=== PATIENT | female | born 1990 | race Caucasian/White ===

== ENCOUNTER 2016-06-01 19:38 | Inpatient (IN) | payer BC ==
--- NOTE | 2016-06-01 20:05 | EDPHY ---
H & P Source: Patient, EMS Exam Limitations: Clinical condition - Medical/Surgical History Hx Asthma: No Hx Chronic Respiratory Disease: No Hx Diabetes: No Hx Cardiac Disease: No Hx Renal Disease: No Hx Cirrhosis: No Other PMH: ADD, depression - Family History Significant Family History: No pertinent family hx - Social History Smoking Status: Former smoker Alcohol Use: Occasionally Drug Use: Marijuana Time Seen by Provider: 06/01/16 19:54 HPI/ROS: CHIEF COMPLAINT: Wrist laceration HISTORY OF PRESENT ILLNESS: Patient is a 25-year-old female who is brought in by police for a wrist laceration. Her ex-boyfriend told them that she was suicidal. She denies this. She called him a "fucking douche bag who was trying to get her kicked out of her apartment." She denies suicidality. She did have 1 shot this evening and smoked marijuana. She has a history of depression and was supposed to be on Concerta but states her boyfriend threw it away sometime ago. REVIEW OF SYSTEMS: Constitutional: denies: chills, fever, recent illness, recent injury EENTM: denies: blurred vision, double vision, nose congestion Respiratory: denies: cough, shortness of breath Cardiac: denies: chest pain, irregular heart rate, lightheadedness, palpitations Gastrointestinal/Abdominal: denies: abdominal pain, diarrhea, nausea, vomiting, blood streaked stools Genitourinary: denies: dysuria, frequency, hematuria, pain Musculoskeletal: denies: joint pain, muscle pain Skin: See HPI Neurological: denies: headache, numbness, paresthesia, tingling, dizziness, weakness Hematologic/Lymphatic: denies: blood clots, easy bleeding, easy bruising Immunologic/allergic: denies: HIV/AIDS, transplant EXAM: GENERAL: Tearful, anxious HEAD: Atraumatic, normocephalic. EYES: Pupils equal round and reactive to light, extraocular movements intact, sclera anicteric, conjunctiva are normal. ENT: TMs normal, nares patent, oropharynx clear without exudates. Moist mucous membranes. NECK: Normal range of motion, supple without lymphadenopathy or JVD. LUNGS: Breath sounds clear to auscultation bilaterally and equal. No wheezes rales or rhonchi. HEART: Regular rate and rhythm without murmurs, rubs or gallops. ABDOMEN: Soft, nontender, normoactive bowel sounds. No guarding, no rebound. No masses appreciated. BACK: No CVA tenderness, no spinal tenderness, step-offs or deformities EXTREMITIES: Laceration, Normal range of motion, no pitting or edema. No clubbing or cyanosis. NEUROLOGICAL: Cranial nerves II through XII grossly intact. Normal speech, normal gait. 5/5 strength, normal movement in all extremities, normal sensation PSYCH: Tearful, angry, minimally cooperative SKIN: For cm laceration/abrasion to left mid forearm on the palmar aspect. Not gaping, 2 mm deep at the deepest. (Wyatt Loredo) Constitutional: Initial Vital Signs Temperature (C) 36.6 C 06/01/16 20:01 Heart Rate 76 06/01/16 20:01 Respiratory Rate 16 06/01/16 20:01 Blood Pressure 126/92 H 06/01/16 20:01 O2 Sat (%) 91 L 06/01/16 20:01 O2 Delivery Mode Room Air Allergies/Adverse Reactions: No Known Allergies Allergy (Unverified 02/21/11 12:37) Home Medications: Medication Instructions Recorded Oxytricyline (Bcp) 02/21/11 Concerta 06/01/16 traZODone 06/01/16 Medical Decision Making ED Course/Re-evaluation: 3:00 a.m.- The patient was seen by the mental health worker [place] and been accepted at [address] [place] [address]. We plan to transfer the patient. (Verna Kramer) We repaired the patient's laceration with Steri-Strips which she promptly removed and refused further treatment. 10:30 p.m. the patient is medically cleared. We are awaiting psychiatric evaluation. 10:45 p.m. patient care transferred to Dr. Kramer. (Wyatt Loredo) Differential Diagnosis: Partial list of the Differential diagnosis considered include but were not limited to; depression, laceration, personality disorder, intoxication and although unlikely based on the history and physical exam, I also considered head injury, infection, assault, schizophrenia, suicidality. (Wyatt Loredo) - Data Points Laboratory Results: Laboratory Results 06/01/16 20:50 06/01/16 20:50 06/01/16 06/01/16 06/01/16 21:15 20:50 20:50 WBC RBC Hgb Hct MCV MCH MCHC RDW Plt Count MPV Neut % (Auto) Lymph % (Auto) Slope % (Auto) Eos % (Auto) Baso % (Auto) Nucleat RBC Rel Count Absolute Neuts (auto) Absolute Lymphs (auto) Absolute Monos (auto) Absolute Eos (auto) Absolute Basos (auto) Absolute Nucleated RBC Immature Gran % Immature Gran # Sodium Potassium Chloride Carbon Dioxide Anion Gap BUN Creatinine Estimated GFR Glucose Calcium Total Bilirubin 0.5 mg/dL mg/dL (0.1-1.4) Conjugated Bilirubin 0.4 mg/dL mg/dL (0.0-0.5) Unconjugated Bilirubin 0.1 mg/dL mg/dL (0.0-1.1) AST 33 IU/L IU/L (14-46) ALT 38 IU/L IU/L (9-52) Alkaline Phosphatase 63 IU/L IU/L (38-126) Total Protein 8.5 g/dL H g/dL (6.3-8.2) Albumin 5.0 g/dL g/dL (3.5-5.0) Urine Opiates Screen NEGATIVE (NEGATIVE) Urine Barbiturates NEGATIVE (NEGATIVE) Ur Phencyclidine Scrn NEGATIVE (NEGATIVE) Ur Amphetamine Screen NEGATIVE (NEGATIVE) U Benzodiazepines Scrn NEGATIVE (NEGATIVE) Urine Cocaine Screen NEGATIVE (NEGATIVE) U Marijuana (THC) Screen NEGATIVE (NEGATIVE) Ethyl Alcohol 113 mg/dL H mg/dL (0-10) 06/01/16 06/01/16 20:50 20:50 WBC 7.24 10^3/uL 10^3/uL (3.80-9.50) RBC 4.49 10^6/uL 10^6/uL (4.18-5.33) Hgb 14.0 g/dL g/dL (12.6-16.3) Hct 42.0 % % (38.0-47.0) MCV 93.5 fL fL (81.5-99.8) MCH 31.2 pg pg (27.9-34.1) MCHC 33.3 g/dL g/dL (32.4-36.7) RDW 13.0 % % (11.5-15.2) Plt Count 364 10^3/uL 10^3/uL (150-400) MPV 9.0 fL fL (8.7-11.7) Neut % (Auto) 67.2 % % (39.3-74.2) Lymph % (Auto) 28.0 % % (15.0-45.0) Slope % (Auto) 3.6 % L % (4.5-13.0) Eos % (Auto) 0.8 % % (0.6-7.6) Baso % (Auto) 0.3 % % (0.3-1.7) Nucleat RBC Rel Count 0.0 % % (0.0-0.2) Absolute Neuts (auto) 4.86 10^3/uL 10^3/uL (1.70-6.50) Absolute Lymphs (auto) 2.03 10^3/uL 10^3/uL (1.00-3.00) Absolute Monos (auto) 0.26 10^3/uL L 10^3/uL (0.30-0.80) Absolute Eos (auto) 0.06 10^3/uL 10^3/uL (0.03-0.40) Absolute Basos (auto) 0.02 10^3/uL 10^3/uL (0.02-0.10) Absolute Nucleated RBC 0.00 10^3/uL 10^3/uL (0-0.01) Immature Gran % 0.1 % % (0.0-1.1) Immature Gran # 0.01 10^3/uL 10^3/uL (0.00-0.10) Sodium 145 mEq/L H mEq/L (134-144) Potassium 4.4 mEq/L mEq/L (3.5-5.2) Chloride 108 mEq/L mEq/L (97-110) Carbon Dioxide 21 mEq/l L mEq/l (22-31) Anion Gap 16 mEq/L mEq/L (8-16) BUN 10 mg/dL mg/dL (7-23) Creatinine 0.8 mg/dL mg/dL (0.6-1.0) Estimated GFR > 60 Glucose 88 mg/dL mg/dL (70-100) Calcium 10.0 mg/dL mg/dL (8.5-10.4) Total Bilirubin Conjugated Bilirubin Unconjugated Bilirubin AST ALT Alkaline Phosphatase Total Protein Albumin Urine Opiates Screen Urine Barbiturates Ur Phencyclidine Scrn Ur Amphetamine Screen U Benzodiazepines Scrn Urine Cocaine Screen U Marijuana (THC) Screen Ethyl Alcohol Medications Given: Discontinued Medications Nicotine (Nicoderm Cq) 14 mg TD EDNOW ONE Stop: 06/02/16 03:48 Last Admin: 06/02/16 04:00 Dose: 14 mg Thiamine HCl (Vitamin B-1) 100 mg IM ONCE ONE Stop: 06/02/16 05:42 Last Admin: 06/02/16 05:59 Dose: Not Given Thiamine HCl (Vitamin B-1) 100 mg PO ONCE ONE Stop: 06/02/16 05:42 Last Admin: 06/02/16 05:59 Dose: Not Given Departure - Departure Disposition: [facility] IP Clinical Impression: Suicidal ideation Condition: Fair
[2016-06-01 21:26] LABS: % IMMATURE GRANULYOCYTES 0.1 % (0.0-1.1); ABSOLUTE IMMATURE GRANULOCYTES 0.01 10^3/uL (0.00-0.10); ADD DIFF? NO; ADD MORPH? NO; ADD SCAN? NO; ATYPICAL LYMPHOCYTE FLAG 30 (0-99); FRAGMENT RBC FLAG 0 (0-99); LEFT SHIFT FLG 0 (0-99); LIPEMIA HEMOLYSIS FLAG 80 (0-99); MEAN CELL HEMOGLOBIN 31.2 pg (27.9-34.1); MEAN CELL HEMOGLOBIN CONCENTR. 33.3 g/dL (32.4-36.7); MEAN CELL VOLUME 93.5 fL (81.5-99.8); PLATELET CLUMPS FLAG 0 (0-99); PLATELET COUNT 364 10^3/uL (150-400); RED BLOOD CELL COUNT 4.49 10^6/uL (4.18-5.33)
[2016-06-01 21:34] LABS: ANION GAP 16 mEq/L (8-16); CARBON DIOXIDE 21 mEq/l (22-31); CHLORIDE 108 mEq/L (97-110); CREATININE 0.8 mg/dL (0.6-1.0); GLOMERULAR FILTRATION RATE > 60; GLUCOSE 88 mg/dL (70-100); POTASSIUM 4.4 mEq/L (3.5-5.2); SODIUM 145 mEq/L (134-144)
[2016-06-01 22:31] LABS: ETHANOL SERUM 113 mg/dL (0-10)
[2016-06-02 03:28] LABS: BILIRUBIN,TOTAL 0.5 mg/dL (0.1-1.4); BILIRUBIN-CONJUGATED 0.4 mg/dL (0.0-0.5); BILIRUBIN-UNCONJUGATED 0.1 mg/dL (0.0-1.1); TOTAL PROTEIN 8.5 g/dL (6.3-8.2)
[2016-06-02] MEDS ORDERED: NICOTINE 14 MG/24 HR PATCH TD ONE (03:47)
[2016-06-02] MEDS ORDERED: MAG HYDROX/AL HYDROX/SIMETH 30 ML UDCUP PO PRN (04:25)
[2016-06-02] MEDS ORDERED: MAGNESIUM HYDROXIDE 30 ML UDCUP PO PRN (04:25)
[2016-06-02] MEDS ORDERED: ACETAMINOPHEN 325 MG TAB PO PRN (04:25)
[2016-06-02] MEDS: LORazepam 0.5 MG TAB PO PRN ×2 (04:47→16:02)
[2016-06-02] MEDS: NICOTINE POLACRILEX 2 MG GUM B PRN ×3 (04:47→15:45)
[2016-06-02] MEDS ORDERED: chlordiazePOXIDE 25 MG CAP PO PRN (05:41)
[2016-06-02] MEDS ORDERED: IBUPROFEN 200 MG TAB PO PRN (05:41)
[2016-06-02] MEDS ORDERED: PROMETHAZINE HCL 25 MG SUPPR PR PRN (05:41)
[2016-06-02] MEDS ORDERED: THIAMINE HCL 100 MG TAB (ONCE) PO ONE (05:41)
[2016-06-02] MEDS ORDERED: PROMETHAZINE HCL 25 MG TAB PO PRN (05:41)
[2016-06-02] MEDS ORDERED: THIAMINE HCL 200 MG/2 ML VIAL IM (ONCE) IM ONE (05:41)
[2016-06-02] MEDS: THIAMINE HCL 100 MG TAB (DAILY X 3) PO SCH (10:01)
[2016-06-02] MEDS: MULTIVITAMINS 1 EACH TAB PO SCH (10:01)
[2016-06-02] MEDS: FOLIC ACID 1 MG TAB PO SCH (10:01)
[2016-06-02] MEDS ORDERED: BACITRACIN OINTMENT 1 PACKET TP ONE (10:11)
[2016-06-02] MEDS: ESCITALOPRAM OXALATE 10 MG TAB PO SCH (15:45)
[2016-06-02] MEDS ORDERED: QUEtiapine FUMARATE 50 MG TAB PO PRN (16:40)
--- NOTE | 2016-06-02 17:18 | BAPA ---
DATE OF SERVICE: 06/02/2016 CHIEF COMPLAINT: "I felt pushed up against the wall with only 1 way out." HISTORY OF PRESENT ILLNESS: Patient is a 25-year-old female with a history of attention d eficit hyperactivity disorder since childhood. She states that she also suffered from depression of f and on and has had repeated and chronic suicidal ideations with multiple previous suicide attempts . She also describes history off and on over time of self-injurious behavior, specifically cutting. She has been living with a boyfriend of 1 month, and states that they had been having fights. Rossana guerrero asked what they fight about, the patient states "when I get drunk, I get mean, and he is a little bitch." She states that she had been drinking the night prior to admission, and that she was making comments about his home being filthy, and he had made a birthday cake for his mother, and she was c riticizing that as well. He told her that he did not want her in his home anymore, and she needed t o move out, and she said that "my life was over. I knew I was going to homeless." She then sta saulo "I knew what I had to do, and I did it." By this, she meant that she went to the bedroom and at tempted to hang herself with a scarf. When unsuccessful, she then filled the bathtub with water, go t in it with her clothes on, and cut her wrist. When her boyfriend found her, she still had the sca rf or handkerchief on her neck and was bleeding profusely. Her boyfriend called the police, and rossana guerrero they arrived, she took off running in the street soaking wet in the cold night. Police were able to apprehend her, and take her to the emergency department, where she was placed on an M1 hold and a dmitted for further evaluation. Today, she states that she was serious about harming herself or kil ling herself. She states "I could not be homeless." She states that she has burned all of her brid ges with family and friends, and "no one will let me home until I am better." She states she wants to be treated for her depression, and describes herself as an "alcoholic with rage issues." She com plains of chronically depressed mood, poor energy, motivation, poor attention and concentration, poo r short-term memory, disruptive sleep, and feelings of helplessness and hopelessness, as well as chr onic suicidal thoughts. She reports drinking up to 12 shots of "straight liquor" per night. PAST PSYCHIATRIC HISTORY: No previous psychiatric hospitalizations. She has seen Dr. Jesus Carrera on in the past, though not recently. She was supposed to have had a phone appointment with him rece ntly, but did not do that. She has had 4-5 previous suicide attempts usually by cutting. She has a history of self-mutilation as well. She has previously taken Strattera, Ritalin, Adderall in addit ion to her current medications and was diagnosed with attention deficit hyperactivity disorder at th e age of 8. ALLERGIES: No known medical allergies. CURRENT MEDICATIONS: Trazodone dose unknown, Loestrol 28 control pills, and Concerta 54 mg da kim. PAST MEDICAL HISTORY: Noncontributory per patient's report. SOCIAL HISTORY: Patient was born in [place], though grew up in [place]. Her parents and sister live in the family home in [place]. She states she does not have a good relationship with them d ue to multiple longstanding conflicts. The patient is currently unemployed and homeless. 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 She states that she did not like it anyway because "I hate my patients. 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 She worked 2 part-time jobs recently, but got fired from 1, and was only getting 23 gonzalez rs between the 2. She has no savings or other resources at this time. She denies any legal problem s. SOCIAL HISTORY: Patient drinks nightly, up to 12 shots of hard alcohol. She denies any other drug use, including marijuana. FAMILY HISTORY: Patient's maternal grandmother had Alzheimer dementia, and multiple female members of the family of alcoholism. She states "everyone woman in my family has by 48 from drink ing and burning themselves up on a mattress." ADMISSION LABORATORY: CBC is normal. Serum chemistry shows sodium up at 145, otherwise normal. Li luis function is normal. Total protein slightly up at 8.5. Urine drug screen is negative for all daniel bstances. Alcohol was 113. MENTAL STATUS EXAMINATION: Reveals a rather disheveled female, dressed in hospital scrub pants and a long sleeve T-shirt. She interacts reasonably well, maintaining eye contact, though a c onstricted, somewhat angry affect. She is also tearful at times. Her mood is described as "depress ed." Her thought process is linear and goal directed. Her thought content reveals no evidence of p sychosis. She is alert and oriented to person, place, time, and situation. Her sensorium is clear. She continues to endorse thoughts of suicide with no specific plan. She states she feels safe in the hospital. Her intellect appears to be average as evidenced by her educational and occupational histories, fund of knowledge, and vocabulary. Her insight and judgment appear to be marginal. IMPRESSION: Depressive disorder, not otherwise specified. Attention deficit hyperactivity disorder , combined type, by history. Alcohol use disorder, moderate to severe. Homelessness. Lack of reso urces and supports, family conflict, recent breakup, academic stress. The patient is a 25-year-old female with a history of attention deficit hyperactivity diso rder and possible chronic depression. She appears depressed at this time, though she is actively al coholic. She requests treatment for her depression; I think this is reasonable given her chronic daniel icidality. I reviewed with her multiple potential antidepressant treatments, including psychotherap y and medications. She prefers a trial of an antidepressant medication. We will start Lexapro at 1 0 mg, after thorough review of the risks, benefits, and alternatives, including the warnings for tu cidal adverse events in young adults. We will work with her in individual, group, and milieu psycho therapies in the hospital and place her on suicide precautions. Estimated length of stay is 3-5 days. /[id number]/MODL
--- NOTE | 2016-06-02 19:13 | BCON ---
INTERNAL MEDICINE CONSULTATION DATE OF CONSULTATION: 06/02/2016 REFERRING PHYSICIAN: Margareth Earl MD REASON FOR CONSULTATION: Medical clearance for inpatient behavioral health stay. HISTORY OF PRESENT ILLNESS: The patient came to the emergency department yesterday brought in by police with a wrist laceration. Per the emergency department note, her ex-boyfriend had told the police that the patient was suicidal. She denied it at that time. She was evaluated by the mental health team and admitted for further psychiatric care. Currently, she complains of feeling tired. She is otherwise without any acute medical complaints. PAST MEDICAL HISTORY: 1. Alcohol dependence. 2. Attention deficit hyperactivity disorder. 3. Depression. PAST SURGICAL HISTORY: She has had wisdom teeth extractions. MEDICATIONS PRIOR TO ADMISSION: 1. Methylphenidate. 2. Norgestrel-ethinyl estradiol. 3. Trazodone. ALLERGIES: There are no known drug allergies. SOCIAL HISTORY: She is a former cigarette smoker. She is a heavy alcohol user. She had been living with a boyfriend, but they have broken up and she currently is homeless. 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 She has family in [place], but she is estranged. FAMILY HISTORY: There is a family history of alcoholism. REVIEW OF SYSTEMS: Other than fatigue, a 10-point review of systems was conducted and was negative. In particular, she denies current symptoms of alcohol withdrawal, including not feeling sweaty and not feeling shaky. PHYSICAL EXAMINATION: VITAL SIGNS: Blood pressure this morning was 91/50, heart rate was 71, respiratory rate was 12, oxygen saturation was 98% on room air, temperature was 36.9 degrees centigrade. Her weight is 61.5 kg for a body mass index of 23.3. GENERAL: This is a well-nourished, well-developed woman, appears her chronological age. Sleeping in bed, is easily awakened, cooperative and in no acute distress. HEENT: Extraocular movements are intact. Pupils are equal, round, and reactive to light. Mucous membranes are moist. Dentition is in good condition. NECK: Supple. HEART: There is a regular rate and rhythm with no murmurs, rubs or gallops. LUNGS: Clear to auscultation bilaterally. ABDOMEN: Soft, nontender, nondistended with normoactive bowel sounds. EXTREMITIES: There is no cyanosis, clubbing or edema. NEUROLOGIC: She is alert and oriented x3. Cranial nerves 2-12 are grossly intact. There is no focal weakness and sensation is intact to light touch. SKIN: There are 2 lacerations to the left palmar aspect of her wrist, one is approximately 5 cm, the other is approximately 4 cm. They are no more than 2 mm deep. There is scant eschar and slight drainage on the dressing. LABORATORY STUDIES: Drawn in the emergency department: CBC was overall within normal limits. She had a slight decrement of monocytes of no clinical significance. Serum chemistry revealed a slightly high sodium at 145 and a slightly low carbon dioxide of 21. Otherwise, renal function and electrolytes were within normal limits and there was not a significant anion gap. Liver function tests were within normal limits. Total protein was slightly high at 8.5. Toxicology in the serum revealed an ethyl alcohol level of 113 mg/dL. Urine toxicology screen was negative for any substances of abuse. ASSESSMENT/RECOMMENDATIONS: 1. Mental health issues. Pending further evaluation and management per Psychiatry and the mental health team. 2. Laceration of the left wrist. There are no deep structures involved. I advise maintaining a dressing over it until it is no longer draining and would change the dressing every day to observe for any signs of infection. 3. Alcohol dependence. She might benefit from specific substance abuse counseling. She is not currently showing any signs or symptoms of alcohol withdrawal most likely because she received lorazepam almost 2 hours ago. Continue treatment with lorazepam or chlordiazepoxide, which is ordered, should be adequate. I see no medical contraindications to the patient's continued stay on the inpatient behavioral health unit or to any psychiatric medications or procedures. Thank you very much for including me in the care of the patient and please do not hesitate to contact me or the hospitalist service should there be need for further medical evaluation. /[id number]/MODL MTDD
[2016-06-03] MEDS: NICOTINE POLACRILEX 2 MG GUM B PRN ×3 (06:40→18:33)
[2016-06-03] MEDS: LORazepam 0.5 MG TAB PO PRN ×2 (07:38→16:54)
[2016-06-03] MEDS: Norgestrel-Ethinyl Estradiol [Low-Ogestrel-28 Tablet] 1 EACH PO SCH (07:38)
[2016-06-03] MEDS: FOLIC ACID 1 MG TAB PO SCH (08:07)
[2016-06-03] MEDS: MULTIVITAMINS 1 EACH TAB PO SCH (08:07)
[2016-06-03] MEDS: THIAMINE HCL 100 MG TAB (DAILY X 3) PO SCH (08:08)
[2016-06-03] MEDS: ESCITALOPRAM OXALATE 10 MG TAB PO SCH (08:37)
[2016-06-03] MEDS ORDERED: NORGESTREL ETHINYL ESTRADIOL PO SCH (09:00)
--- NOTE | 2016-06-03 16:19 | SOAPPROG ---
SOAP Progress Note Assessment/Plan: Assessment: Plan: 06/03/16 16:20 Remains angry, uninsightful, inactive. Continues to endorse imminent SI. Seroquel seems helpful. Will increase to 100mg, monitor. Subjective: Pt seen, discussed with staff. Reports feeling "shitty." Mood remains low. She remains very angry with her BF stating "this is all his fault, he ruined my life. 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 She continues to isolate in her room, refusing to go to groups because "I don't want to associate with these f---ing goonies." She states her mother is "finding me a program to go to." She states this will be some kind of residential mental health program. Objective: Vital Signs Temp Pulse Resp BP Pulse Ox 36.7 C 70 16 110/66 96 06/03/16 15:54 06/03/16 15:54 06/03/16 15:54 06/03/16 15:54 06/03/16 15:54 MSE: Angry, guarded, but generally coop and interactive. Affect is constricted , stable. Mood is "terrible." TP linear. TC reveals no psychosis. Continues to endorse SI, stating, "I might as well quickly than be homeless and anyway." - Time Spent With Patient Time Spent With Patient: 25" ICD10 Worksheet Patient Problems: Problems Problem Status Onset Suicidal ideation Acute
[2016-06-03] MEDS: QUEtiapine FUMARATE 100 MG TAB PO SCH (20:40)
[2016-06-04] MEDS: LORazepam 0.5 MG TAB PO PRN (09:50)
[2016-06-04] MEDS: ESCITALOPRAM OXALATE 10 MG TAB PO SCH (09:55)
[2016-06-04] MEDS: Norgestrel-Ethinyl Estradiol [Low-Ogestrel-28 Tablet] 1 EACH PO SCH ×2 (09:55→09:58)
[2016-06-04] MEDS: THIAMINE HCL 100 MG TAB (DAILY X 3) PO SCH (09:58)
[2016-06-04] MEDS: NICOTINE POLACRILEX 2 MG GUM B PRN ×5 (09:59→19:36)
[2016-06-04] MEDS: MULTIVITAMINS 1 EACH TAB PO SCH (11:01)
[2016-06-04] MEDS: FOLIC ACID 1 MG TAB PO SCH ×2 (11:01→11:02)
[2016-06-04] MEDS: METHYLPHENIDATE SR 20 MG TAB.SR PO SCH (11:55)
[2016-06-04] MEDS: QUEtiapine FUMARATE 100 MG TAB PO SCH (19:36)
--- NOTE | 2016-06-04 22:38 | SOAPPROG ---
SOAP Progress Note Assessment/Plan: Assessment: Plan: 06/03/16 16:20 Remains angry, uninsightful, inactive. Continues to endorse imminent SI. Seroquel seems helpful. Will increase to 100mg, monitor. 06/04/16 22:38 Remains imminently lethal. CCM. Subjective: Pt seen, discussed with staff. Reports feeins "really mad." When investigated, she states she is angry at her ex-BF because he left her. Total lack of insight into her contribution to the conflict. Compliant with meds, voicing no SI. Objective: Vital Signs Temp Pulse Resp BP Pulse Ox 37.4 C 78 16 111/73 98 06/04/16 18:38 06/04/16 18:38 06/04/16 18:38 06/04/16 18:38 06/04/16 18:38 MSE: Moderately agitated. Just tore up all of her jounals and legal paper aAngey that he showers aore cold by the time she uses them. - Time Spent With Patient Time Spent With Patient: 25" ICD10 Worksheet Patient Problems: Problems Problem Status Onset Suicidal ideation Acute
[2016-06-05] MEDS: LORazepam 0.5 MG TAB PO PRN (06:02)
[2016-06-05] MEDS: NICOTINE POLACRILEX 2 MG GUM B PRN ×5 (06:02→18:22)
[2016-06-05] MEDS: FOLIC ACID 1 MG TAB PO SCH (08:32)
[2016-06-05] MEDS: MULTIVITAMINS 1 EACH TAB PO SCH (08:32)
[2016-06-05] MEDS: ESCITALOPRAM OXALATE 10 MG TAB PO SCH (08:32)
[2016-06-05] MEDS: Norgestrel-Ethinyl Estradiol [Low-Ogestrel-28 Tablet] 1 EACH PO SCH (08:32)
[2016-06-05] MEDS: METHYLPHENIDATE SR 20 MG TAB.SR PO SCH (08:32)
--- NOTE | 2016-06-05 13:31 | SOAPPROG ---
SOAP Progress Note Assessment/Plan: Assessment: 25yo with depr, EtOH s/p dramatic SA in bathtub SIWL and something tied around neck in context of being intoxicated, in context of breakup w/boyfriend and impending homelessness, dropped out of [employer] recently, bf now has restraining order against her. 06/05/16 13:20 met with mother [phone] x 40 min who reports being very supportive of her daughter and plans to accompany her to residential treatment program in [place], [place] called [facility]. Insurance covers this and the program is ready for her anytime. 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 States pt is in agreement, also to give up phone and social contacts, and use this as an opportunity to get long- needed help and treatment, and move forward from past, "fresh start", as pt feels she has hit "rock bottom". Mother acknowledged strong fam hx of EtOH, both mgm and mggm of EtOH at 47yo. Pt drinks and this makes depr/anxiety worse, but also turns to EtOH when emotionally "spinning" and has a "meltdown". Admits this is the 1st SA that mother "is aware of". Does not want to lose her daughter. Discussed need to assess pt and ensure pt safe for travel and also in agreement with plan. Also informed mother she needed to consider all possibilities, including that pt could change her mind en route, and what to do then. "I'd have to stop the car and call the police". 06/05/16 23:26 met with pt this pm x 35min who reports consistently no SI and feels mother is her biggest support for her. "I wouldn't be here without her" including self- harm but also staying voluntarily until a good d/c plan in place with help of her mother. trusts her and states she will listen to her, "oh definately, have you met my mother?", including cooperating with d/c plan. looking fwd to [facility], a women's dual dx residential tx program in [place] which has accepted her for treatment. admits to EtOH cravings even presently, and able to admit "I am an alcoholic" and needing help, but refuses Antabuse, and states she will just maintain sobriety (longest 1 month) with support of family and this program. denies any plan to resume EtOH. "I will be with my mother'. Talks of plan for d/c with leaving from [facility] to [facility] then directly to [place] with mother tomorrow, and mother plans to purchase tickets. looking fwd to "getting my life back on track" as she has hit "rock bottom" by being here and letting herself get this out of control emotionally. would like med stabilization, dx clarification, and therapy as well as sobriety out of this program. denies current probs w/meds, denies s/e. thinks Lexapro may be helpful, "not in a depressive pit" since starting, and has been sleeping better with Seroquel, although does not feel she is psychotic. explained it's mood stabilizing benefits. also feels less overall reactive, and more productive since started back on Ritalin SR, "I can work on this puzzle" and was able to "watch TV and concentrate" on it today since starting. MSE: calm, cooperative, fair eye contact (working on puzzle), nml psychomotor activity, casually dressed wearing exercise bra and pants, back covered in tattoos, nml speech rate/vol, affect slightly annoyed just about being in hospital but controlled, mood "better than when I got here", denied any psychotic sxs, denied any SI or thoughts to harm others. A&Ox4. Objective: Vital Signs Temp Pulse Resp BP Pulse Ox 36.8 C 70 16 109/61 96 06/05/16 08:28 06/05/16 08:28 06/05/16 06:00 06/05/16 08:28 06/05/16 08:28 - Time Spent With Patient Time Spent With Patient: 35min - Pending Discharge Pending Discharge Within 24 Hours: Yes Pending Discharge Date: 06/06/16 Pending Discharge Time: 11:00 ICD10 Worksheet Patient Problems: Problems Problem Status Onset Suicidal ideation Acute
[2016-06-05] MEDS: QUEtiapine FUMARATE 100 MG TAB PO SCH (21:31)
[2016-06-06 06:38] VITALS: BP 105/70; PULSE 83; RESP 14; TEMP 97.5; O2SAT 99
[2016-06-06] MEDS: METHYLPHENIDATE SR 20 MG TAB.SR PO SCH (07:41)
[2016-06-06] MEDS: FOLIC ACID 1 MG TAB PO SCH (07:42)
[2016-06-06] MEDS: Norgestrel-Ethinyl Estradiol [Low-Ogestrel-28 Tablet] 1 EACH PO SCH (07:42)
[2016-06-06] MEDS: MULTIVITAMINS 1 EACH TAB PO SCH (07:42)
[2016-06-06] MEDS: ESCITALOPRAM OXALATE 10 MG TAB PO SCH (07:42)
--- NOTE | 2016-06-06 09:43 | SOAPPROG ---
SOAP Progress Note Assessment/Plan: Assessment: 25yo with depr, EtOH s/p dramatic SA in bathtub SIWL and something tied around neck, intoxicated, in context of breakup w/boyfriend of one month and impending homelessness, dropped out of [employer] recently, bf who is on probation now has restraining order against her. Plan: 06/05/16 13:20 met with mother [phone]) x 40min who reports being very supportive of her daughter and plans to accompany her to residential treatment program in [place], [place] called [facility]. Insurance covers this and the program is ready for her anytime. 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 States pt is in agreement, also to give up phone and social contacts, and use this as an opportunity to get long- needed help and treatment, and move forward from past, "fresh start", as pt feels she has hit "rock bottom". Mother acknowledged strong fam hx of EtOH, both mgm and mggm of EtOH at 49yo. Pt drinks and this makes depr/anxiety worse, but also turns to EtOH when emotionally "spinning" and has a "meltdown". Admits this is the 1st SA that mother "is aware of". Does not want to lose her daughter. Discussed need to assess pt and ensure pt safe for travel and also in agreement with plan. Also informed mother she needed to consider all possibilities, including that pt could change her mind en route, and what to do then. "I'd have to stop the car and call the police". 06/05/16 18:26 met with pt this pm who reports consistently no SI and feels mother is her biggest support for her. "I wouldn't be here without her" including self-harm but also staying voluntarily until a good d/c plan in place with help of her mother. trusts her and states she will listen to her, "oh definately, have you met my mother?", including cooperating with d/c plan. looking fwd to [facility], a women's dual dx residential tx program in [place] which has accepted her for treatment. admits to EtOH cravings even presently, and able to admit "I am an alcoholic" and needing help, but refuses Antabuse, and states she will just maintain sobriety (longest 1 month) with support of family and program. talks of plan for d/c with leaving from [facility] to [facility] then directly to [place] with mother tomorrow, and mother plans to purchase tickets. looking fwd to "getting my life back on track" as she has hit "rock bottom" by being here and letting herself get this out of control emotionally. would like med stabilization, dx clarification, and therapy as well as sobriety out of this program. denies current probs w/meds, denies s/e. thinks Lexapro may be helpful, "not in a depressive pit" since starting, and has been sleeping better with Seroquel, although does not feel she is psychotic. explained it's mood stabilizing benefits. also feels less overall reactive, and more productive since started back on Ritalin SR, "I can work on this puzzle" and was able to "watch TV and concentrate" on it today since starting. MSE: calm, cooperative, fair eye contact (working on puzzle), nml psychomotor activity, casually dressed wearing exercise bra and pants, back covered in tattoos, nml speech rate/vol, affect slightly annoyed about still being in hospital but controlled, mood "better than when I got here", denied any psychotic sxs, denied any SI or thoughts to harm others. A&Ox4. 06/06/16 09:36 DISCHARGE Pt doing well. states she slept well last night. feels rested and ready for d/c with mother straight to [facility] to fly out to dual dx program in [place]. working on puzzle again this AM. "I'm trying to finish it before my mom comes". denies med s/e altho thinks Lexapro may make her a bit sleepy and may try it at HS. offset by Ritalin SR which she reports helps her concentrate and focus. thinks it also helps so far with "numbing my feelings" and eliminates "swarming emotions". reports previously she would experience "flashback memories", which "would make me upset...then I couldn't shut them off, then I would explode." Prefers to "not feel anything" as she feels now, and so feels calm. +future oriented thinking, looking forward to program and is happy to have support from mother. consistently denies any SI. denies any EtOH cravings this AM. motivated for treatment at women's residential dual dx facility in [place]. MSE: calm, cooperative, fair eye contact (working on puzzle again this am), nml psychomotor activity, casually dressed, nml speech rate/vol, affect euthymic, mood "better now than when I got here" (as she stated yesterday), denied any AH/ VH or other psychotic sxs, denied any SI, and no thoughts to harm others. A&Ox4. stable for d/c. Written RX provided for 1 week supply: lexapro 10mg, seroquel 100mg hs, ritalin sr 20mg qd. Objective: Vital Signs Temp Pulse Resp BP Pulse Ox 36.4 C 83 14 105/70 99 06/06/16 06:38 06/06/16 06:38 06/06/16 06:38 06/06/16 06:38 06/06/16 06:38 - Time Spent With Patient Time Spent With Patient: 35min - Pending Discharge Pending Discharge Within 24 Hours: Yes Pending Discharge Date: 06/06/16 Pending Discharge Time: 11:00 ICD10 Worksheet Patient Problems: Problems Problem Status Onset Suicidal ideation Acute
== END 2016-06-06 10:00 | DRG 881 ==
LOC: EDUNIT# → EEVIPCON 19:38 → BBEH 06-02 04:15
PROVIDERS: ADMIT Psychiatry & Neurology Behavioral Neurology & Neuropsychiatry; ATTEND Psychiatry & Neurology Behavioral Neurology & Neuropsychiatry
DX: F32.9 Major depressive disorder, single episode, unspecified (principal); R45.851 Suicidal ideations; S61.512A Laceration without foreign body of left wrist, initial encounter; X78.1XXA Intentional self-harm by knife, initial encounter; Y92.039 Unspecified place in apartment as the place of occurrence of the external cause; Y99.8 Other external cause status; F10.20 Alcohol dependence, uncomplicated; F90.9 Attention-deficit hyperactivity disorder, unspecified type
CPT/HCPCS: 80305; G0480; J3411